=== PATIENT | male | born 1995 | race Caucasian/White ===

== ENCOUNTER 2017-08-17 21:07 | Emergency (ER) | payer BC ==
[2017-08-17] MEDS: IBUPROFEN 800 MG TABLET. PO ×2 (21:41)
[2017-08-17] MEDS: HYDROcodone/APAP 5/325MG 1 TAB TABLET PO ×2 (21:42)
== END 2017-08-17 21:57 | disposition home or self-care (01) ==
LOC: ER 21:07
DX: S49.92XA Unspecified injury of left shoulder and upper arm, initial encounter (principal); J45.909 Unspecified asthma, uncomplicated; V00.311A Fall from snowboard, initial encounter; Y93.23 Activity, snow (alpine) (downhill) skiing, snowboarding, sledding, tobogganing and snow tubing; Y92.89 Other specified places as the place of occurrence of the external cause; Y99.8 Other external cause status
CPT/HCPCS: 73000; 73030; 99284